=== PATIENT | male | born 1960 | race Caucasian/White ===

== ENCOUNTER 2017-05-15 15:16 | Emergency (ER) | payer OTHER ==
[2017-05-15] MEDS ORDERED: SKELAXIN 800MG800 MG PO (16:44)
[2017-05-15] MEDS ORDERED: IBU800 M1 PO (16:44)
[2017-05-15] MEDS ORDERED: NORCO 325 MG-51 TA1 PO (16:44)
[2017-05-15 16:50] VITALS: BP 141/87
== END 2017-05-15 16:49 | disposition home or self-care (01) ==
LOC: ED 15:16
DX: S16.1XXA Strain of muscle, fascia and tendon at neck level, initial encounter (principal); V98.8XXA Other specified transport accidents, initial encounter; Y92.410 Unspecified street and highway as the place of occurrence of the external cause

== ENCOUNTER → 2017-05-15 | Outpatient (CLI) | payer OTHER ==
[~2017-05-15] MED LIST: IBU800 M1 PO; NORCO 325 MG-51 TA1 PO; SKELAXIN 800MG800 MG PO
[2017-05-15 15:27] VITALS: BP 154/86
== END ==
LOC: LAB 16:51
DX: Z02.89 Encounter for other administrative examinations (principal)
CPT/HCPCS: L0150